=== PATIENT | female | born 1975 | race Caucasian/White ===

== ENCOUNTER → 2021-03-01 | Outpatient (CLI) | payer OTHER ==
[~2021-03-01] MED LIST: Ultram50 MG PO; VENL75ER PO
== END | disposition home or self-care (01) ==
LOC: LAB 18:20 → LAB SHORT 18:20
DX: L02.211 Cutaneous abscess of abdominal wall (principal)
CPT/HCPCS: 87070; 87075; 87077; 87186; 87205

== ENCOUNTER → 2023-02-22 | Outpatient (CLI) | payer OTHER | END | disposition home or self-care (01) | LOC: LAB 11:37 → LAB SHORT 11:37 | DX: N39.0 Urinary tract infection, site not specified (principal) | CPT/HCPCS: 87077; 87086; 87186 ==

== ENCOUNTER → 2023-02-27 | Outpatient (CLI) | payer OTHER ==
[2023-02-28 12:01] LABS: Candida species (DNA Probe) Negative (NEGATIVE); G. vaginalis (DNA Probe) Negative (NEGATIVE); T. vaginalis (DNA Probe) Negative (NEGATIVE)
[2023-03-05 15:07] LABS: HPV 16 Negative (Negative); HPV 18 Negative (Negative); HPV OTHER HR TYPES Negative (Negative)
== END ==
LOC: LAB SHORT 13:57 → LAB 13:57
PROVIDERS: Student in an Organized Health Care Education/Training Program
DX: Z12.4 Encounter for screening for malignant neoplasm of cervix (principal); N89.8 Other specified noninflammatory disorders of vagina; R10.2 Pelvic and perineal pain
CPT/HCPCS: 87480; 87510; 87660

== ENCOUNTER → 2023-04-16 | Outpatient (CLI) | payer OTHER ==
[2023-04-16 15:06] LABS: Source, Urine Clean Catch
[2023-04-16 16:22] LABS: Bilirubin, Urine Neg (Neg); Blood, Urine 4+ (Neg); Glucose Qualitative, Urine Neg (Neg); Ketones, Urine Neg (Neg); Leukocyte Esterase, Urine 1+ (Neg); Nitrite, Urine Neg (Neg); Protein, Urine Neg (Neg); Urobilinogen, Urine NORM (Normal)
[2023-04-16 16:37] LABS: Appearance, Urine Clear (Clear); Color, Urine Yellow (P-Yellow)
[2023-04-16 16:38] LABS: Bacteria Many /hpf; Squamous Epithelial Cells Few /hpf (Few)
== END | disposition home or self-care (01) ==
LOC: LAB SHORT 15:04 → LAB 15:04
PROVIDERS: Student in an Organized Health Care Education/Training Program
DX: R35.0 Frequency of micturition (principal); R30.9 Painful micturition, unspecified
CPT/HCPCS: 81001; 87077; 87086; 87186

== ENCOUNTER → 2023-05-22 | Outpatient (CLI) | payer OTHER ==
[2023-05-22 13:13] LABS: Source, Urine Clean Catch
[2023-05-22 14:31] LABS: Appearance, Urine Hazy (Clear); Bilirubin, Urine Neg (Neg); Blood, Urine 3+ (Neg); Color, Urine Yellow (P-Yellow); Glucose Qualitative, Urine Neg (Neg); Ketones, Urine Neg (Neg); Leukocyte Esterase, Urine 3+ (Neg); Nitrite, Urine Pos (Neg); Protein, Urine 1+ (Neg); Urobilinogen, Urine NORM (Normal)
[2023-05-22 15:10] LABS: White Blood Cells, Urine 50-100 /hpf (0-5)
[2023-05-22 15:11] LABS: Bacteria Many /hpf; Squamous Epithelial Cells Mod /hpf (Few)
[2023-05-22 15:13] LABS: Mucus Light (0-Heavy)
[2023-05-22 15:52] LABS: Candida species (DNA Probe) Negative (NEGATIVE); G. vaginalis (DNA Probe) Positive (NEGATIVE); T. vaginalis (DNA Probe) Negative (NEGATIVE)
== END | disposition home or self-care (01) ==
LOC: LAB SHORT 13:11 → LAB 13:11
PROVIDERS: Student in an Organized Health Care Education/Training Program
DX: N30.90 Cystitis, unspecified without hematuria (principal); R30.0 Dysuria
CPT/HCPCS: 81001; 87077; 87086; 87186; 87480; 87510; 87660